=== PATIENT | female | born 1985 | race Caucasian/White ===

== ENCOUNTER 2016-08-05 08:40 | Inpatient (IN) | payer BC ==
[2016-08-05] MEDS ORDERED: Bupivacaine/fentaNYL/NS 100 ML Bag EPIDUR SCH (09:45)
[2016-08-05] MEDS ORDERED: Ondansetron 4 MG/2 ML SDV IVPUSH PRN (10:24)
[2016-08-05] MEDS ORDERED: Sodium Chloride 0.9% 10 ML Syringe FLUSH PRN (10:24)
[2016-08-05] MEDS ORDERED: ePHEDrine 50 MG/ML SDV IVPUSH PRN (10:25)
[2016-08-05] MEDS ORDERED: fentaNYL 100 MCG/2 ML SDV EPIDUR PRN (10:25)
[2016-08-05] MEDS ORDERED: Oxytocin/Lactated Ringers 10 UNIT/1,000 ML BAG IV SCH ×2 (10:30→23:51)
[2016-08-05] MEDS: Lactated Ringers 1,000 ML IV SCH ×5 (10:54→16:59)
--- NOTE | 2016-08-05 10:58 | PCM.PREANE ---
Preanesthetic Assessment - Anesthesia/Transfusion/Family Hx Anesthesia History: Prior Anesthesia Without Reaction Family History of Anesthesia Reaction: No Transfusion History: No Prior Transfusion(s) Intubation History: Unknown - Review of Systems General: No Symptoms Pulmonary: No Symptoms Cardiovascular: No Symptoms Gastrointestinal: No symptoms (GERD), Vomiting (occasionally with ) Neurological: No Symptoms (CTS with ) Other: Reports: None (history of blood clots with control pill/ patient taking heparin and last dose 08/04/16 @1800), Easy Bleeding, Easy Bruising - Physical Assessment NPO Status Date: 08/05/16 NPO Status Time: 03:00 Pulse: 91 O2 Sat by Pulse Oximetry: 97 Respiratory Rate: 18 Blood Pressure: 140/99 Temperature: 36.7 C Vital Signs: Last Vital Signs Temp 36.7 C 08/05/16 09:53 Pulse 91 08/05/16 09:53 Resp 18 08/05/16 09:53 BP 140/99 H 08/05/16 09:53 Pulse Ox 97 08/05/16 09:53 Height: 1.68 m Weight: 93.894 kg ASA Class: 2 Mental Status: Alert & Oriented x3 Airway Class: Mallampati = 3 Dentition: Reports: Normal Dentition, Caries Thyro-Mental Finger Breadths: 3 Mouth Opening Finger Breadths: 3 ROM/Head Extension: Full Lungs: Clear to auscultation, Normal respiratory effort Cardiovascular: Regular Rate, Regular Rhythm - Lab Values: Laboratory Last Values WBC 9.33 K/mm3 (3.98-10.04) 08/05/16 10:10 RBC 3.86 M/mm3 (3.98-5.22) L 08/05/16 10:10 Hgb 12.1 gm/L (11.2-15.7) 08/05/16 10:10 Hct 35.0 % (34.1-44.9) 08/05/16 10:10 MCV 90.7 fl (79.4-94.8) 08/05/16 10:10 MCH 31.3 pg (25.6-32.2) 08/05/16 10:10 MCHC 34.6 g/dl (32.2-35.5) 08/05/16 10:10 RDW Std Deviation 43.0 fL (36.4-46.3) 08/05/16 10:10 Plt Count 137 K/mm3 (182-369) L 08/05/16 10:10 MPV 11.5 fl (9.4-12.3) 08/05/16 10:10 PT 8.9 SECONDS (8.0-13.0) 08/05/16 10:10 INR 0.83 08/05/16 10:10 APTT 27 SECONDS (22-36) 08/05/16 10:10 Reviewed and noted. - Allergies Allergies/Adverse Reactions: Allergies Allergy/AdvReac Type Severity Reaction Status Date / Time phenytoin [From Dilantin] Allergy Other Verified 08/05/16 10:10 - Anesthesia Plan Pre-Op Medication Ordered: None - Acknowledgements Anesthesia Type Planned: Epidural Pt an Appropriate Candidate for the Planned Anesthesia: Yes Alternatives and Risks of Anesthesia Discussed w Pt/Guardian: Yes Pt/Guardian Understands and Agrees with Anesthesia Plan: Yes PreAnesthesia Questionnaire - Past Health History Medical/Surgical History: Denies Medical/Surgical History HEENT History: Reports: None Other Neuro History: DVT CAUSED SEIZURE Endocrine/Metabolic History: Reports: None Hematologic History: Reports: Other (see below) Other Hematologic History: BLOOD CLOT AT AGE 27 - Past Surgical History HEENT Surgical History: Reports: Oral surgery Other Endocrine Surgeries/Procedures: history of dvt Other Neurological Surgeries/Procedures: SEISURE FROM DVT - SUBSTANCE USE Smoking Status *Q: Former Smoker Second Hand Smoke Exposure: No Recreational Drug Use History: No - CURRENT (IN HOUSE) MEDS Current Meds: Current Medications Ephedrine Sulfate (Ephedrine Sulfate) 5 mg IVPUSH ASDIRECTED PRN PRN Reason: Hypotension Fentanyl (Sublimaze) 100 mcg EPIDUR Q3H PRN PRN Reason: Pain Fentanyl/Bupivacaine HCl (Fentanyl/Bupivacaine/Ns 2 Mcg-0.125% 100 Ml) 100 ml EPIDUR ASDIRECTED [facility] Ampicillin Sodium 2 gm/ Sodium (Chloride) 100 mls @ 200 mls/hr IV ONETIME ONE Stop: 08/05/16 11:29 Last Admin: 08/05/16 10:52 Dose: 200 mls/hr Ampicillin Sodium 1 gm/ Sodium (Chloride) 100 mls @ 200 mls/hr IV Q4H MARIA G Lactated Ringer's (Ringers, Lactated) 1,000 mls @ 100 mls/hr IV ASDIRECTED MARIA G Oxytocin/Lactated Ringer's (Pitocin In Lr 10 Units/1,000 Ml) 10 unit in 1,000 mls @ 12 mls/hr IV TITRATE MARIA G; 2 MUNITS/MIN PRN Reason: Protocol Ondansetron HCl (Zofran) 4 mg IVPUSH ONETIME PRN PRN Reason: Nausea/Vomiting Sodium Chloride (Saline Flush) 10 ml FLUSH ASDIRECTED PRN PRN Reason: Keep Vein Open
[2016-08-05] MEDS ORDERED: Ampicillin 2 GM in Sodium Chloride 0.9% 100 ML IV ONE (11:00)
--- NOTE | 2016-08-05 14:28 | PCM.SN ---
- Free Text/Narrative Note: Start: 1350 Stop: Anesthesia Note: Anesthesia notified of patient having pressures in the 60's/40's. Upon arrival patient awake, and conversing and answering questions appropriately. Patient c/o hearing ringing in her ears, and tingling in her tongue, Patient's color is pale/pasty. Iv fluids running wide open/CLIFF stopped/10mg of ephedrine given IV and pressures responded well at 110's-130's/ 60's. Patient repositioned back to RIGO position. Level checked to be T6. Patient able to move legs well, and able to wiggle toes. CLIFF restarted and pressures again dropped 80's systolic. CLIFF stopped once again @ 1353 with another ephedrine dose of 10mg given. Once again pressures responded well to 120's systolic. CLIFF rate dropped to 7ml's/hr and kept off temporarily. Under sterile technique, CLIFF catheter pulled back from 10cm to 9cm. Catheter secured and dressing applied and secured with tape. At 1433 CLIFF restarted at rate of 7ml's/hr, current LY=119's systolic. Nurse present at bedside, and patient/ encouraged to communicate any signs and or symptoms.
[2016-08-05] MEDS: Ampicillin 1 GM in Sodium Chloride 0.9% 100 ML IV SCH ×3 (15:20→23:10)
--- NOTE | 2016-08-05 15:44 | PCM48HPAN ---
Post Anesthesia Note - EVALUATION WITHIN 48HRS OF ANESTHETIC Vital Signs in Normal Range: Yes Patient Participated in Evaluation: Yes Respiratory Function Stable: Yes Airway Patent: Yes Cardiovascular Function Stable: Yes Hydration Status Stable: Yes Pain Control Satisfactory: Yes Nausea and Vomiting Control Satisfactory: Yes Mental Status Recovered: Yes - COMMENTS/OBSERVATIONS Free Text/Narrative:: 1525: Patient checked with adequate pain control noted, vital signs remaining within acceptable limits, and both patient and resting quietly. No c/o noted at this time.
[2016-08-05] MEDS ORDERED: Bupivacaine 0.25% 10 ML SDV ONE (22:22)
[2016-08-05] MEDS ORDERED: ePHEDrine 50 MG/ML SDV ONE (22:22)
[2016-08-06] MEDS ORDERED: Lanolin 100% Cream 7 GM Tube TOP PRN (00:47)
[2016-08-06] MEDS ORDERED: Acetaminophen 325 MG Tab PO PRN (00:47)
[2016-08-06] MEDS ORDERED: Benzocaine/Menthol 20%-0.5% Spray 56 GM Canister TOP PRN (00:47)
[2016-08-06] MEDS ORDERED: Witch Hazel Medicated Pads 100/Jar TOP PRN (00:47)
[2016-08-06] MEDS: Lactated Ringers 1,000 ML IV SCH (01:32)
--- NOTE | 2016-08-06 09:17 | PCM.PNPP ---
- General Info Date of Service: 08/06/16 Functional Status: Reports: pain controlled - Review of Systems General: Reports: No Symptoms HEENT: Reports: no symptoms Pulmonary: Reports: no symptoms Cardiovascular: Reports: No Symptoms Gastrointestinal: Reports: No symptoms Genitourinary: Reports: no symptoms Musculoskeletal: Reports: no symptoms Skin: Reports: no symptoms Neurological: Reports: No Symptoms Psychiatric: Reports: no symptoms - General Info Date of Service: 08/06/16 - Patient Data Vital Signs - most recent: Last Vital Signs Temp 36.8 C 08/06/16 02:23 Pulse 116 H 08/06/16 02:23 Resp 18 08/06/16 02:23 BP 101/84 08/06/16 02:23 Pulse Ox 96 08/06/16 02:23 Weight - most recent: 93.894 kg I&O - last 24 hours: Intake & Output 08/05/16 08/06/16 08/06/16 22:59 06:59 14:59 Intake Total 720 1000 Balance 720 1000 Lab Results - last 24 hrs: Laboratory Results - last 24 hr 08/05/16 08/05/16 Range/Units 10:10 10:10 WBC 9.33 (3.98-10.04) K/mm3 RBC 3.86 L (3.98-5.22) M/mm3 Hgb 12.1 (11.2-15.7) gm/L Hct 35.0 (34.1-44.9) % MCV 90.7 (79.4-94.8) fl MCH 31.3 (25.6-32.2) pg MCHC 34.6 (32.2-35.5) g/dl RDW Std Deviation 43.0 (36.4-46.3) fL Plt Count 137 L (182-369) K/mm3 MPV 11.5 (9.4-12.3) fl PT 8.9 (8.0-13.0) SECONDS INR 0.83 APTT 27 (22-36) SECONDS Med Orders - Current: Current Medications Acetaminophen (Tylenol) 650 mg PO Q6H PRN PRN Reason: mild pain or fever Benzocaine/Menthol (Dermoplast Pain Relief [place]) 0 gm TOP ASDIRECTED PRN PRN Reason: Perineal Comfort Measure Last Admin: 08/06/16 01:31 Dose: 1 applic Docusate Sodium (Colace) 100 mg PO BID PRN PRN Reason: Constipation Emollient Ointment (Lansinoh Hpa) 0 gm TOP ASDIRECTED PRN PRN Reason: Sore Nipples Enoxaparin Sodium (Lovenox) 40 mg SUBCUT DAILY [facility] Oxytocin/Lactated Ringer's (Pitocin In Lr 10 Units/1,000 Ml) 10 unit in 1,000 mls @ 3,000 mls/hr IV ASDIRECTED MARIA G PRN Reason: 500 MUNITS/MIN Last Admin: 08/06/16 01:34 Dose: 83 munits/min, 498 mls/hr Harris Joiner (Tucks) 1 pad TOP ASDIRECTED PRN PRN Reason: Hemorrhoid pain Last Admin: 08/06/16 01:30 Dose: 1 applic Discontinued Medications Ephedrine Sulfate (Ephedrine Sulfate) 5 mg IVPUSH ASDIRECTED PRN PRN Reason: Hypotension Fentanyl (Sublimaze) 100 mcg EPIDUR Q3H PRN PRN Reason: Pain Last Admin: 08/05/16 13:06 Dose: 100 mcg Fentanyl/Bupivacaine HCl (Fentanyl/Bupivacaine/Ns 2 Mcg-0.125% 100 Ml) 100 ml EPIDUR ASDIRECTED MARIA G Last Admin: 08/05/16 13:06 Dose: 100 ml Ampicillin Sodium 2 gm/ Sodium (Chloride) 100 mls @ 200 mls/hr IV ONETIME ONE Stop: 08/05/16 11:29 Last Admin: 08/05/16 10:52 Dose: 200 mls/hr Ampicillin Sodium 1 gm/ Sodium (Chloride) 100 mls @ 200 mls/hr IV Q4H [facility] Last Admin: 08/05/16 23:10 Dose: 200 mls/hr Lactated Ringer's (Ringers, Lactated) 1,000 mls @ 100 mls/hr IV ASDIRECTED MARIA G Last Admin: 08/06/16 01:32 Dose: 200 mls/hr Oxytocin/Lactated Ringer's (Pitocin In Lr 10 Units/1,000 Ml) 10 unit in 1,000 mls @ 12 mls/hr IV TITRATE MARIA G; 2 MUNITS/MIN PRN Reason: Protocol Last Titration: 08/05/16 21:25 Dose: 16 munits/min, 96 mls/hr Ondansetron HCl (Zofran) 4 mg IVPUSH ONETIME PRN PRN Reason: Nausea/Vomiting Sodium Chloride (Saline Flush) 10 ml FLUSH ASDIRECTED PRN PRN Reason: Keep Vein Open - Infant Interaction Disposition, : Rumsey at Bedside Support Person: - Recovery Exam Fundal Tone: Firm Fundal Level: 1 Fingerbreadths Below Umbilicus Fundal Placement: Midline Lochia Amount: Small Bladder Status: Voiding - Exam General: alert, oriented HEENT: Pupils equal Neck: supple Lungs: Clear to auscultation, Normal respiratory effort Cardiovascular: Regular Rate, Regular Rhythm Abdomen: bowel sounds present, soft, no tenderness, no distension Extremities: no edema Skin: warm, dry, intact Neurological: no new focal deficit Psy/Mental Status: alert, normal affect, normal mood - Problem List Review Problem List Initiated/Reviewed/Updated: Yes - My Orders Last 24 Hours: My Active Orders 08/05/16 09:53 Heart Tones [RC] ASDIRECTED 08/05/16 23:51 Oxytocin/Lactated Ringers [Pitocin in LR 10 Units/1,000 ML] 10 unit in 1,000 ml IV ASDIRECTED 08/06/16 00:38 Resuscitation Status Routine 08/06/16 00:47 Activity as Tolerated [RC] .PRN Vital Signs [RC] ASDIRECTED Acetaminophen [Tylenol] 650 mg PO Q6H PRN Benzocaine/Menthol [Dermoplast Pain Relief [place]] See Dose Instructions TOP ASDIRECTED PRN Docusate Sodium [Colace] 100 mg PO BID PRN Lanolin [Lansinoh HPA] See Dose Instructions TOP ASDIRECTED PRN Witch Marisel [Tucks] 1 pad TOP ASDIRECTED PRN Assess Lochia [WOMSER] Per Unit Routine Assess Uterine Involution [WOMSER] Per Unit Routine Breast Pump [WOMSER] Per Unit Routine Heat Therapy [OM.PC] PRN Medication Administration Instruction [OM.PC] Routine Perineal Care [OM.PC] Per Unit Routine Sitz Bath [OM.PC] Per Unit Routine 08/06/16 14:00 Enoxaparin [Lovenox] 40 mg SUBCUT DAILY 08/06/16 Breakfast Regular Diet [DIET] 08/07/16 00:39 CBC W/O DIFF,HEMOGRAM [HEME] Routine 08/07/16 00:47 Heat Therapy [OM.PC] PRN 08/07/16 07:00 CBC W/O DIFF,HEMOGRAM [HEME] MOTH@69908/11/16 07:00 CBC W/O DIFF,HEMOGRAM [HEME] MOTH@69908/14/16 07:00 CBC W/O DIFF,HEMOGRAM [HEME] MOTH@69908/18/16 07:00 CBC W/O DIFF,HEMOGRAM [HEME] MOTH@69908/21/16 07:00 CBC W/O DIFF,HEMOGRAM [HEME] MOTH@69908/25/16 07:00 CBC W/O DIFF,HEMOGRAM [HEME] MOTH@0700 - Assessment Assessment:: Term delivery -History of sagital sinus thrombosis - restart lovenox at 1400 -Normal care otherwise at this time.
[2016-08-06] MEDS: Docusate Sodium 100 MG Cap PO PRN (10:00)
[2016-08-06] MEDS: Enoxaparin 40 MG/0.4 ML Syringe SUBCUT SCH (13:58)
[2016-08-06] MEDS: Acetaminophen 325 MG Tab PO PRN ×2 (15:33→20:50)
--- NOTE | 2016-08-07 08:01 | PCM.DCSUM1 ---
Discharge Summary - Hospital Course Brief History: Admitted with rupture of membranes. Progressed with normal labor. - Discharge Data Discharge Date: 08/07/16 Discharge Disposition: Home, Self-Care 01 Condition: Good - Patient Instructions Diet: Usual Diet as Tolerated Activity: No Strenuous Activities Driving: May Drive Today Showering/Bathing: May Shower Notify Provider of: Fever, Increased Pain, Swelling and Redness, Drainage, Nausea and/or Vomiting - Discharge Plan Referrals: Nimisha Rinaldi MD [Physician] - (6 weeks) - Discharge Summary/Plan Comment DC Time >30 min.: No - Patient Data Vitals - Most Recent: Last Vital Signs Temp 36.6 C 08/06/16 13:05 Pulse 74 08/06/16 13:05 Resp 15 08/06/16 13:05 BP 102/79 08/06/16 13:05 Pulse Ox 96 08/06/16 13:05 Weight - Most Recent: 93.894 kg I&O - Last 24 hours: Intake & Output 08/06/16 08/07/16 08/07/16 22:59 06:59 14:59 Intake Total 120 Balance 120 Lab Results - Last 24 hrs: Laboratory Results - last 24 hr 08/07/16 Range/Units 06:10 WBC 13.71 H (3.98-10.04) K/mm3 RBC 3.23 L (3.98-5.22) M/mm3 Hgb 10.1 L (11.2-15.7) gm/L Hct 29.9 L (34.1-44.9) % MCV 92.6 (79.4-94.8) fl MCH 31.3 (25.6-32.2) pg MCHC 33.8 (32.2-35.5) g/dl RDW Std Deviation 43.9 (36.4-46.3) fL Plt Count 132 L (182-369) K/mm3 MPV 12.1 (9.4-12.3) fl Med Orders - Current: Current Medications Acetaminophen (Tylenol) 650 mg PO Q4H PRN PRN Reason: Pain Last Admin: 08/06/16 20:50 Dose: 650 mg Benzocaine/Menthol (Dermoplast Pain Relief [place]) 0 gm TOP ASDIRECTED PRN PRN Reason: Perineal Comfort Measure Last Admin: 08/06/16 01:31 Dose: 1 applic Docusate Sodium (Colace) 100 mg PO BID PRN PRN Reason: Constipation Last Admin: 08/06/16 10:00 Dose: 100 mg Emollient Ointment (Lansinoh Hpa) 0 gm TOP ASDIRECTED PRN PRN Reason: Sore Nipples Last Admin: 08/06/16 14:30 Dose: 1 tube Enoxaparin Sodium (Lovenox) 40 mg SUBCUT DAILY [facility] Last Admin: 08/06/16 13:58 Dose: 40 mg Oxytocin/Lactated Ringer's (Pitocin In Lr 10 Units/1,000 Ml) 10 unit in 1,000 mls @ 3,000 mls/hr IV ASDIRECTED MARIA G PRN Reason: 500 MUNITS/MIN Last Admin: 08/06/16 01:34 Dose: 83 munits/min, 498 mls/hr Witch Marisel (Tucks) 1 pad TOP ASDIRECTED PRN PRN Reason: Hemorrhoid pain Last Admin: 08/06/16 01:30 Dose: 1 applic Discontinued Medications Acetaminophen (Tylenol) 650 mg PO Q6H PRN PRN Reason: mild pain or fever Last Admin: 08/06/16 10:15 Dose: 650 mg Bupivacaine HCl (Sensorcaine-Mpf 0.25%) 10 ml .ROUTE .STK-MED ONE Stop: 08/05/16 22:23 Ephedrine Sulfate (Ephedrine Sulfate) 5 mg IVPUSH ASDIRECTED PRN PRN Reason: Hypotension Ephedrine Sulfate (Ephedrine Sulfate) 50 mg .ROUTE .STK-MED ONE Stop: 08/05/16 22:23 Fentanyl (Sublimaze) 100 mcg EPIDUR Q3H PRN PRN Reason: Pain Last Admin: 08/05/16 13:06 Dose: 100 mcg Fentanyl/Bupivacaine HCl (Fentanyl/Bupivacaine/Ns 2 Mcg-0.125% 100 Ml) 100 ml EPIDUR ASDIRECTED [facility] Last Admin: 08/05/16 13:06 Dose: 100 ml Ampicillin Sodium 2 gm/ Sodium (Chloride) 100 mls @ 200 mls/hr IV ONETIME ONE Stop: 08/05/16 11:29 Last Admin: 08/05/16 10:52 Dose: 200 mls/hr Ampicillin Sodium 1 gm/ Sodium (Chloride) 100 mls @ 200 mls/hr IV Q4H MARIA G Last Admin: 08/05/16 23:10 Dose: 200 mls/hr Lactated Ringer's (Ringers, Lactated) 1,000 mls @ 100 mls/hr IV ASDIRECTED MARIA G Last Admin: 08/06/16 01:32 Dose: 200 mls/hr Oxytocin/Lactated Ringer's (Pitocin In Lr 10 Units/1,000 Ml) 10 unit in 1,000 mls @ 12 mls/hr IV TITRATE MARIA G; 2 MUNITS/MIN PRN Reason: Protocol Last Titration: 08/05/16 21:25 Dose: 16 munits/min, 96 mls/hr Ondansetron HCl (Zofran) 4 mg IVPUSH ONETIME PRN PRN Reason: Nausea/Vomiting Sodium Chloride (Saline Flush) 10 ml FLUSH ASDIRECTED PRN PRN Reason: Keep Vein Open *Q Meaningful Use (DIS) - VTE *Q VTE Criteria *Q: - Stroke *Q Stroke Criteria *Q: - AMI *Q AMI Criteria *Q:
[2016-08-07] MEDS: Docusate Sodium 100 MG Cap PO PRN (08:06)
[2016-08-07] MEDS: Acetaminophen 325 MG Tab PO PRN (08:06)
[2016-08-07 09:58] VITALS: BP 118/86
[2016-08-07] MEDS: Enoxaparin 40 MG/0.4 ML Syringe SUBCUT SCH (10:09)
--- NOTE | 2016-08-08 00:37 | PCM.LDHP ---
L&D History of Present Illness - General Date of Service: 08/08/16 Admit Problem/Dx: Admission Diagnosis/Problem Admission Diagnosis/Problem Source of Information: Patient History Limitations: Reports: No Limitations - History of Present Illness Introduction:: 31 year old here with painful contractions and question of rupture of membranes. Pain Score: 1 - Related Data Allergies/Adverse Reactions: Allergies Allergy/AdvReac Type Severity Reaction Status Date / Time phenytoin [From Dilantin] Allergy Other Verified 08/05/16 10:10 Home Medications: Home Meds Acetaminophen [Tylenol] 650 mg PO Q4H PRN #0 tablet 08/07/16 [Rx] Benzocaine/Menthol [Dermoplast Pain Relief [place]] 56 gm TOP ASDIRECTED PRN #0 canister 08/07/16 [Rx] Docusate Sodium [Colace] 100 mg PO BID PRN #0 cap 08/07/16 [Rx] Enoxaparin [Lovenox] 40 mg SUBCUT DAILY syringe 08/07/16 [Rx] Harris Marisel [Tucks] 1 pad TOP ASDIRECTED PRN #0 pad 08/07/16 [Rx] Past Medical History - Past Health History Medical/Surgical History: Denies Medical/Surgical History HEENT History: Reports: None Other Neuro History: DVT CAUSED SEIZURE Endocrine/Metabolic History: Reports: None Hematologic History: Reports: Other (see below) Other Hematologic History: BLOOD CLOT AT AGE 27 - Past Surgical History HEENT Surgical History: Reports: Oral surgery Other Endocrine Surgeries/Procedures: history of dvt Other Neurological Surgeries/Procedures: SEISURE FROM DVT Social & Family History - Family History Family Medical History: Noncontributory - Tobacco Use Smoking Status *Q: Former Smoker Used Tobacco, but Quit: No Month Tobacco Last Used: 2009 Second Hand Smoke Exposure: No - Caffeine Use Caffeine Use: Reports: Soda - Recreational Drug Use Recreational Drug Use: No H&P Review of Systems - Review of Systems: Review Of Systems: See Below General: Reports: No Symptoms HEENT: Reports: No Symptoms Pulmonary: Reports: No Symptoms Cardiovascular: Reports: No Symptoms Gastrointestinal: Reports: No Symptoms Genitourinary: Reports: No Symptoms Musculoskeletal: Reports: No Symptoms Skin: Reports: No Symptoms Psychiatric: Reports: No Symptoms Neurological: Reports: No Symptoms Hematologic/Lymphatic: Reports: No Symptoms Immunologic: Reports: No Symptoms L&D Exam - Exam Exam: See Below - Vital Signs Vital Signs: Last Vital Signs Temp 36.7 C 08/07/16 08:07 Pulse 80 08/07/16 08:07 Resp 16 08/07/16 08:07 BP 118/86 08/07/16 08:07 Pulse Ox 98 08/07/16 08:07 Weight: 93.894 kg - OB Specific Contraction Intensity: Moderate Movement: Active Heart Tones: Present Heart Tones per Min: 145 Heart Rate (FHR) Variability: Moderate (6-25 bmp) Presentation: Vertex - Antonio Score Antonio Score Cervix Position: Midposition Antonio Score Consistency: Soft Antonio Score Effacement: 51-70% Antonio Score Dilation: 3-4 cm Antonio Score Infant's Station: -1 ,0 Antonio Score Total: 9 - Exam General: Alert, Oriented HEENT: Conjunctiva Clear Neck: Supple Lungs: Clear to Auscultation Cardiovascular: Regular Rate, Regular Rhythm Abdomen: Normal Bowel Sounds, Soft Genitourinary: Normal external exam Back Exam: Normal Inspection, Full Range of Motion Extremities: Normal Inspection Skin: Warm, Dry, Intact Psychiatric: Alert, Normal Affect, Normal Mood - Patient Data Lab Results last 24 hrs: Laboratory Results - last 24 hr 08/07/16 Range/Units 06:10 WBC 13.71 H (3.98-10.04) K/mm3 RBC 3.23 L (3.98-5.22) M/mm3 Hgb 10.1 L (11.2-15.7) gm/L Hct 29.9 L (34.1-44.9) % MCV 92.6 (79.4-94.8) fl MCH 31.3 (25.6-32.2) pg MCHC 33.8 (32.2-35.5) g/dl RDW Std Deviation 43.9 (36.4-46.3) fL Plt Count 132 L (182-369) K/mm3 MPV 12.1 (9.4-12.3) fl Result Diagrams: 08/07/16 06:10 Problem List Initiated/Reviewed/Updated: Yes Orders Last 24hrs: Active Orders 24 hr Category Date Time Status Ready for Discharge [RC] PER UNIT ROUTINE Care 08/07/16 07:57 Active Heat Therapy [OM.PC] PRN Oth 08/07/16 00:47 Ordered Assessment/Plan Comment:: Term labor. History of sagital sinus thrombosis. Stopped heparin with contractions.
== END 2016-08-07 11:00 | disposition home or self-care (01) | DRG 560 ==
LOC: JD.OBCHECK 08:40 → JD.OB 08:41 → OBSVTOIN 23:57
PROVIDERS: ADMIT Obstetrics & Gynecology; ATTEND Obstetrics & Gynecology
PROC: 10E0XZZ Delivery of Products of Conception, External Approach (ICD-10-PCS; principal; 2016-08-05)
PROC: 0KQM0ZZ Repair Perineum Muscle, Open Approach (ICD-10-PCS; 2016-08-05)
PROC: 00HU33Z Insertion of Infusion Device into Spinal Canal, Percutaneous Approach (ICD-10-PCS; 2016-08-05)
PROC: 3E0R3CZ (ICD-10-PCS; 2016-08-05)
DX: O42.92 Full-term premature rupture of membranes, unspecified as to length of time between rupture and onset of labor (principal); O99.824 Streptococcus B carrier state complicating childbirth; O70.1 Second degree perineal laceration during delivery; Z3A.40 40 weeks gestation of pregnancy; Z37.0 Single live birth; Z86.718 Personal history of other venous thrombosis and embolism; Z79.01 Long term (current) use of anticoagulants; Z88.8 Allergy status to other drugs, medicaments and biological substances; Z87.891 Personal history of nicotine dependence
CPT/HCPCS: 01967; 36415; 85027; 85610; 85730; A9270-GY; J0290; J1650; J2590; J3010; J7030; J7120

== ENCOUNTER 2019-11-24 14:17 | Inpatient (IN) | payer BC ==
[2019-11-24] MEDS ORDERED: Sodium Chloride 0.9% 10 ML Syringe FLUSH PRN (15:12)
[2019-11-24] MEDS ORDERED: Lidocaine 1% 50 ML MDV INJECT PRN (15:12)
[2019-11-24] MEDS ORDERED: Nalbuphine 10 MG/ML Syringe IVPUSH PRN (15:12)
[2019-11-24] MEDS ORDERED: Oxytocin/Lactated Ringers 10 UNIT/1,000 ML BAG IV SCH ×2 (15:15)
--- NOTE | 2019-11-24 15:35 | PCM.LDHP ---
L&D History of Present Illness - General Date of Service: 11/24/19 Admit Problem/Dx: Patient Status Order with Admit Dx/Problem 11/24/19 15:12 Patient Status [ADT] Routine Admission Diagnosis/Problem Admission Diagnosis/Problem - History of Present Illness Introduction:: 34 year old at 37w6 here with mild gestational hypertension for IOL Timing/Duration: Reports: seconds: - Related Data Allergies/Adverse Reactions: Allergies Allergy/AdvReac Type Severity Reaction Status Date / Time phenytoin [From Dilantin] Allergy Other Verified 08/05/16 10:10 Home Medications: Home Meds Acetaminophen [Tylenol] 650 mg PO Q4H PRN #0 tablet 08/07/16 [Rx] Aspirin [Jimena Chewable] 81 mg PO BEDTIME 11/24/19 [History] Cetirizine HCl [Zyrtec] 1 tab PO BEDTIME 11/24/19 [History] Escitalopram Oxalate [Lexapro] 10 mg PO BEDTIME 11/24/19 [History] Heparin Sodium,Porcine/PF [Heparin Sod 5,000 Unit/0.5 ml] 10,000 unit SQ DAILY 11/24/19 [History] Pnv No.95/Ferrous Fum/Folic AC [ Vitamin Tablet] 1 tab PO BEDTIME 11/24/19 [History] Past Medical History - Past Health History Medical/Surgical History: Denies Medical/Surgical History HEENT History: Reports: None Other Neuro History: DVT CAUSED SEIZURE Endocrine/Metabolic History: Reports: None Hematologic History: Reports: Other (See Below) Other Hematologic History: BLOOD CLOT AT AGE 27 - Past Surgical History HEENT Surgical History: Reports: Oral Surgery Social & Family History - Family History Family Medical History: Noncontributory - Caffeine Use Caffeine Use: Reports: Soda H&P Review of Systems - Review of Systems: Review Of Systems: See Below General: Reports: No Symptoms HEENT: Reports: No Symptoms Pulmonary: Reports: No Symptoms Cardiovascular: Reports: No Symptoms Gastrointestinal: Reports: No Symptoms Genitourinary: Reports: No Symptoms Musculoskeletal: Reports: No Symptoms Skin: Reports: No Symptoms Psychiatric: Reports: No Symptoms Neurological: Reports: No Symptoms Hematologic/Lymphatic: Reports: No Symptoms Immunologic: Reports: No Symptoms L&D Exam - Exam Exam: See Below - Vital Signs Vital Signs: Last Vital Signs Temp Pulse 97 11/24/19 15:00 Resp BP 138/95 H 11/24/19 15:00 Pulse Ox Weight: 101.605 kg - OB Specific Contraction Intensity: Irritability Movement: Active Heart Tones: Present Heart Rate (FHR) Variability: Moderate (6-25 bmp) - Antonio Score Antonio Score Cervix Position: Midposition Antonio Score Consistency: Soft Antonio Score Effacement: >80% Antonio Score Dilation: 1-2 cm Antonio Score Infant's Station: -2 Antonio Score Total: 8 - Exam General: Alert, Oriented HEENT: PERRLA, Conjunctiva Clear, EACs Clear, EOMI, Hearing Intact, Mucosa Moist & Arnold, Nares Patent, Normal Nasal Septum, Posterior Pharynx Clear, TMs Clear Neck: Supple, Trachea Midline Lungs: Clear to Auscultation, Normal Respiratory Effort Cardiovascular: Regular Rate, Regular Rhythm GI/Abdominal Exam: Normal Bowel Sounds, Soft, Non-Tender, No Organomegaly, No Distention, No Abnormal Bruit, No Mass, Pelvis Stable Rectal Exam: Normal Exam Back Exam: Normal Inspection, Full Range of Motion Extremities: Normal Inspection, Normal Range of Motion, Non-Tender, No Pedal Edema, Normal Capillary Refill Skin: Warm, Dry, Intact Neurological: Cranial Nerves Intact, Reflexes Equal Bilateral Psychiatric: Alert, Normal Affect, Normal Mood Problem List Initiated/Reviewed/Updated: Yes Orders Last 24hrs: Active Orders 24 hr Category Date Time Status Patient Status [ADT] Routine ADT 11/24/19 15:12 Active Activity as Tolerated [RC] PFP Care 11/24/19 15:12 Active Communication Order [RC] ASDIRECTED Care 11/24/19 15:12 Active Heart Tones [RC] ASDIRECTED Care 11/24/19 15:13 Active Non Stress Test [RC] PER UNIT ROUTINE Care 11/24/19 15:12 Active Notify Provider [RC] PFP Care 11/24/19 15:12 Active Notify Provider [RC] PRN Care 11/24/19 15:12 Active Peripheral IV Care [RC] . DIRECTED Care 11/24/19 15:13 Active Urinary Catheter Assessment [RC] ASDIRECTED Care 11/24/19 15:12 Active Vital Signs [RC] PER UNIT ROUTINE Care 11/24/19 15:12 Active Regular Diet [DIET] Diet 11/24/19 Dinner Active ALANINE AMINOTRANSFERASE,ALT [CHEM] Stat Lab 11/24/19 15:32 Ordered ASPARTATE AMNIOTRANSFERASE,AST [CHEM] Stat Lab 11/24/19 15:32 Ordered BLOOD BANK HOLD SPECIMEN [BBK] Routine Lab 11/24/19 15:12 Ordered BLOOD UREA NITROGEN,BUN [CHEM] Stat Lab 11/24/19 15:32 Ordered CBC W/O DIFF,HEMOGRAM [HEME] Routine Lab 11/24/19 15:12 Ordered CBC WITH AUTO DIFF [HEME] Stat Lab 11/24/19 15:32 Ordered CORONAVIRUS COVID-19 RAPID [MOLEC] Routine Lab 11/24/19 15:15 Ordered CREATININE W/GFR [CHEM] Stat Lab 11/24/19 15:32 Ordered LACTATE DEHYDROGENASE,LDH [CHEM] Stat Lab 11/24/19 15:32 Ordered PROTEIN/CREATININE RATIO,URINE [URCHEM] Routine Lab 11/24/19 15:32 Ordered RAPID PLASMA REAGIN,RPR [CHEM] Routine Lab 11/24/19 15:12 Ordered Lactated Ringers [Ringers, Lactated] 1,000 ml Med 11/24/19 15:15 Active IV ASDIRECTED Lidocaine 1% [Xylocaine 1%] Med 11/24/19 15:12 Active 50 ml INJECT ONETIME PRN Nalbuphine [Nubain] Med 11/24/19 15:12 Active 10 mg IVPUSH Q2H PRN Oxytocin/Lactated Ringers [Pitocin in LR 10 Units/1,000 Med 11/24/19 15:15 Active ML] 10 unit in 1,000 ml IV .CONTINUOUS Oxytocin/Lactated Ringers [Pitocin in LR 10 Units/1,000 Med 11/24/19 15:15 Active ML] 10 unit in 1,000 ml IV TITRATE Sodium Chloride 0.9% [Saline Flush] Med 11/24/19 15:12 Active 10 ml FLUSH ASDIRECTED PRN Electronic Heart Tones Ext w TOCO [WOMSER] Oth 11/24/19 15:12 Ordered Routine Electronic Heart Tones Internal [WOMSER] Per Unit Oth 11/24/19 15:12 Ordered Routine PIH Panel [OM.PC] Urgent Oth 11/24/19 15:32 Ordered Peripheral IV Insertion Adult [OM.PC] Routine Oth 11/24/19 15:12 Ordered Resuscitation Status Routine Resus Stat 11/24/19 15:12 Ordered Medication Orders Oxytocin/Lactated Ringer's (Pitocin In Lr 10 Units/1,000 Ml) 10 unit in 1,000 mls @ 12 mls/hr IV TITRATE MARIA G; Protocol Oxytocin/Lactated Ringer's (Pitocin In Lr 10 Units/1,000 Ml) 10 unit in 1,000 mls @ 500 mls/hr IV .CONTINUOUS MARIA G Lactated Ringer's (Ringers, Lactated) 1,000 mls @ 100 mls/hr IV ASDIRECTED MARIA G Lidocaine HCl (Xylocaine 1%) 50 ml INJECT ONETIME PRN PRN Reason: Breakthrough Pain Nalbuphine HCl (Nubain) 10 mg IVPUSH Q2H PRN PRN Reason: Pain Sodium Chloride (Saline Flush) 10 ml FLUSH ASDIRECTED PRN PRN Reason: Keep Vein Open Assessment/Plan Comment:: 34 year old here for gestational htn
[2019-11-24] MEDS: Lactated Ringers 1,000 ML IV SCH ×2 (15:43→19:33)
[2019-11-24] MEDS ORDERED: diphenhydrAMINE 50 MG/ML SDV IVPUSH PRN (19:10)
[2019-11-24] MEDS ORDERED: ePHEDrine 50 MG/ML SDV IVPUSH PRN (19:10)
[2019-11-24] MEDS ORDERED: Bupivacaine/fentaNYL/NS 100 ML Bag EPIDUR PRN (19:10)
[2019-11-24] MEDS ORDERED: fentaNYL 100 MCG/2 ML SDV EPIDUR PRN (19:10)
--- NOTE | 2019-11-24 19:33 | PCM.PREANE ---
Preanesthetic Assessment - Procedure Proposed Procedure: Labor Epidural - Anesthesia/Transfusion/Family Hx Anesthesia History: Prior Anesthesia Reaction Type of Anesthesia Reaction: Other (see below) (High level with epidural, felt she could not breathe, had to be turned off and restarted at a lower rate. ) Family History of Anesthesia Reaction: No Transfusion History: No Prior Transfusion(s) Intubation History: Unknown - Review of Systems General: No Symptoms Pulmonary: No Symptoms Cardiovascular: No Symptoms Gastrointestinal: Other (GERD) Neurological: No Symptoms Other: Reports: Easy Bleeding, Easy Bruising (Anticoagulated with heparin prophylaxis. History of blood clot in sagital sinus lead to seizure at 27. No further blood clot development. ) - Physical Assessment Vital Signs: Last Vital Signs Temp 36.4 C 11/24/19 15:12 Pulse 98 11/24/19 15:12 Resp BP 135/98 H 11/24/19 15:12 Pulse Ox Height: 1.68 m Weight: 101.605 kg ASA Class: 2 Mental Status: Alert & Oriented x3 Airway Class: Mallampati = 1 Dentition: Reports: Mims(s) (Cap to front incisor) Thyro-Mental Finger Breadths: 3 Mouth Opening Finger Breadths: 3 ROM/Head Extension: Full Lungs: Clear to Auscultation, Normal Respiratory Effort Cardiovascular: Regular Rate, Regular Rhythm - Lab Values: Laboratory Last Values WBC 7.77 K/mm3 (3.98-10.04) 11/24/19 15:45 RBC 3.45 M/mm3 (3.98-5.22) L 11/24/19 15:45 Hgb 9.7 gm/dl (11.2-15.7) L 11/24/19 15:45 Hct 30.1 % (34.1-44.9) L 11/24/19 15:45 MCV 87.2 fl (79.4-94.8) D 11/24/19 15:45 MCH 28.1 pg (25.6-32.2) 11/24/19 15:45 MCHC 32.2 g/dl (32.2-35.5) 11/24/19 15:45 RDW Std Deviation 42.2 fL (36.4-46.3) 11/24/19 15:45 Plt Count 154 K/mm3 (182-369) L D 11/24/19 15:45 MPV 11.3 fl (9.4-12.3) 11/24/19 15:45 APTT 21 SECONDS (22-31) L 11/24/19 17:50 BUN 7 mg/dL (7-18) 11/24/19 16:00 Creatinine 0.6 mg/dL (0.55-1.02) 11/24/19 16:00 Est Cr Clr Drug Dosing 126.01 mL/min 11/24/19 16:00 Estimated GFR (MDRD) > 60 mL/min (>60) 11/24/19 16:00 AST 17 U/L (15-37) 11/24/19 16:00 ALT 20 U/L (14-59) 11/24/19 16:00 Lactate Dehydrogenase 209 U/L (81-234) 11/24/19 16:00 Ur Random Creatinine 59.3 mg/dL (30.0-125.0) 11/24/19 17:15 U Random Total Protein 8.0 mg/dL (0.0-11.8) 11/24/19 17:15 Protein/Creatinin Ratio 134.9 mg/g (0-149) 11/24/19 17:15 COVID-19 (JERRY) Negative (NEGATIVE) 11/24/19 15:25 - Allergies Allergies/Adverse Reactions: Allergies Allergy/AdvReac Type Severity Reaction Status Date / Time phenytoin [From Dilantin] Allergy Other Verified 08/05/16 10:10 - Acknowledgements Anesthesia Type Planned: Epidural Pt an Appropriate Candidate for the Planned Anesthesia: Yes Alternatives and Risks of Anesthesia Discussed w Pt/Guardian: Yes Pt/Guardian Understands and Agrees with Anesthesia Plan: Yes PreAnesthesia Questionnaire - Past Health History Medical/Surgical History: Denies Medical/Surgical History HEENT History: Reports: None Cardiovascular History: Reports: Hypertension [employer] ENGINEER History: Reports: Neurological History: Reports: Seizure, Other (See Below) Other Neuro History: DVT CAUSED SEIZURE Endocrine/Metabolic History: Reports: None Hematologic History: Reports: Other (See Below) Other Hematologic History: BLOOD CLOT AT AGE 27 - Past Surgical History HEENT Surgical History: Reports: Oral Surgery - SUBSTANCE USE Smoking Status *Q: Former Smoker Tobacco Use Within Last Twelve Months: Cigarettes Recreational Drug Use History: No - HOME MEDS Home Medications: Home Meds Acetaminophen [Tylenol] 650 mg PO Q4H PRN #0 tablet 08/07/16 [Rx] Aspirin [Jimena Chewable] 81 mg PO BEDTIME 11/24/19 [History] Cetirizine HCl [Zyrtec] 1 tab PO BEDTIME 11/24/19 [History] Escitalopram Oxalate [Lexapro] 10 mg PO BEDTIME 11/24/19 [History] Heparin Sodium,Porcine/PF [Heparin Sod 5,000 Unit/0.5 ml] 10,000 unit SQ DAILY 11/24/19 [History] Pnv No.95/Ferrous Fum/Folic AC [ Vitamin Tablet] 1 tab PO BEDTIME 11/24/19 [History] - CURRENT (IN HOUSE) MEDS Current Meds: Current Medications Diphenhydramine HCl (Benadryl) 25 mg IVPUSH Q6H PRN PRN Reason: pruritis Ephedrine Sulfate (Ephedrine Sulfate) 5 mg IVPUSH ASDIRECTED PRN PRN Reason: Hypotension Fentanyl (Sublimaze) 100 mcg EPIDUR Q3H PRN PRN Reason: Pain Fentanyl/Bupivacaine HCl (Fentanyl/Bupivacaine/Ns 2 Mcg-0.125% 100 Ml) 100 ml EPIDUR ASDIRECTED PRN PRN Reason: Pain Oxytocin/Lactated Ringer's (Pitocin In Lr 10 Units/1,000 Ml) 10 unit in 1,000 mls @ 12 mls/hr IV TITRATE MARIA G; Protocol Last Titration: 11/24/19 18:55 Dose: 12 munits/min, 72 mls/hr Documented by: Oxytocin/Lactated Ringer's (Pitocin In Lr 10 Units/1,000 Ml) 10 unit in 1,000 mls @ 500 mls/hr IV .CONTINUOUS MARIA G Lactated Ringer's (Ringers, Lactated) 1,000 mls @ 100 mls/hr IV ASDIRECTED MARIA G Last Admin: 11/24/19 15:43 Dose: 100 mls/hr Documented by: Lidocaine HCl (Xylocaine 1%) 50 ml INJECT ONETIME PRN PRN Reason: Breakthrough Pain Nalbuphine HCl (Nubain) 10 mg IVPUSH Q2H PRN PRN Reason: Pain Sodium Chloride (Saline Flush) 10 ml FLUSH ASDIRECTED PRN PRN Reason: Keep Vein Open
[2019-11-24] MEDS ORDERED: Acetaminophen 325 MG Tab PO PRN (21:20)
[2019-11-25] MEDS ORDERED: Lidocaine 1.5% with EPINEPHrine 1:200,000 5 ML Amp ONE
[2019-11-25] MEDS ORDERED: Oxytocin/Lactated Ringers 20 UNIT/1,000 ML BAG IV SCH (00:30)
--- NOTE | 2019-11-25 04:54 | PCM.SN.2 ---
- Free Text/Narrative Note: Stage I - 34 year old at 37w6 days admitted with mild gestational hypertension for induction of labor. Pitocin. Epidural for anesthesia. Progressed to complete with reassuring FHT. STage II - of viable male, weight 3330g, 8/9 apgars at 0434. Head delivered in controlled manner over intact perineum. Body and shoulders atraumatically. To maternal abdomen. Positive cry. Cord clamped and cut at one minute of life. Stage III - of intact placetna. 3vc. Small 1st degree laceration repaired with 3-0 vicryl. EBL 100.
[2019-11-25] MEDS ORDERED: Witch Hazel Medicated Pads 40/Jar TOP PRN (05:35)
[2019-11-25] MEDS ORDERED: Benzocaine/Menthol 20%-0.5% Spray 56 GM Canister TOP PRN (05:35)
[2019-11-25] MEDS: Lactated Ringers 1,000 ML IV SCH ×2 (08:45→08:46)
[2019-11-25] MEDS: Heparin Sodium 5,000 Units/ML Vial SUBCUT SCH ×2 (21:15→21:16)
--- NOTE | 2019-11-26 08:13 | PCM.DCSUM1 ---
Discharge Summary - Hospital Course Brief History: Admitted for induction for blood pressures Diagnosis: Stroke: No - Discharge Data Discharge Date: 11/26/19 Discharge Disposition: Home, Self-Care 01 Condition: Good - Referral to Home Health Primary Care Physician: Nimisha Rinaldi MD - Patient Instructions Diet: Usual Diet as Tolerated Activity: No Strenuous Activities Activity, Other: pelvic rest Driving: May Drive Today Showering/Bathing: May Shower Wound/Incision Care: Keep Operative Site/Wound Site Clean and Dry Notify Provider of: Fever, Increased Pain, Swelling and Redness, Drainage, Nausea and/or Vomiting - Discharge Plan *PRESCRIPTION DRUG MONITORING PROGRAM REVIEWED*: No *COPY OF PRESCRIPTION DRUG MONITORING REPORT IN PATIENT BOUBACAR: No Home Medications: Home Meds Aspirin [Jimena Chewable Aspirin] 81 mg PO BEDTIME 11/24/19 [History] Cetirizine HCl [Zyrtec] 1 tab PO BEDTIME 11/24/19 [History] Escitalopram Oxalate [Lexapro] 10 mg PO BEDTIME 11/24/19 [History] Pnv No.95/Ferrous Fum/Folic AC [ Vitamin Tablet] 1 tab PO BEDTIME 11/24/19 [History] Heparin Sodium 5,000 units SUBCUT Q12HR vial 11/26/19 [Rx] Referrals: Nimisha Rinaldi MD [Primary Care Provider] - (2-3 weeks (may be telemed if desires)) - Discharge Summary/Plan Comment DC Time >30 min.: No - General Info Date of Service: 11/26/19 Functional Status: Reports: Pain Controlled - Review of Systems General: Reports: No Symptoms HEENT: Reports: No Symptoms Pulmonary: Reports: No Symptoms Cardiovascular: Reports: No Symptoms Gastrointestinal: Reports: No Symptoms Genitourinary: Reports: No Symptoms Musculoskeletal: Reports: No Symptoms Skin: Reports: No Symptoms Neurological: Reports: No Symptoms Psychiatric: Reports: No Symptoms - Patient Data Vitals - Most Recent: Last Vital Signs Temp 36.3 C 11/26/19 05:14 Pulse 70 11/26/19 05:14 Resp 14 11/26/19 05:14 BP 134/94 H 11/26/19 05:14 Pulse Ox 95 11/26/19 05:14 Weight - Most Recent: 101.605 kg Med Orders - Current: Current Medications Benzocaine/Menthol (Dermoplast Pain Relief Hinkley) 0 gm TOP ASDIRECTED PRN PRN Reason: Perineal Comfort Measure Last Admin: 11/25/19 15:47 Dose: 1 can Documented by: Heparin Sodium (Porcine) (Heparin Sodium) 5,000 units SUBCUT Q12HR MARIA G Last Admin: 11/25/19 21:16 Dose: Not Given Documented by: Harris Joiner ([email or web address]) 1 pad TOP ASDIRECTED PRN PRN Reason: Pain Last Admin: 11/25/19 15:47 Dose: 1 jar Documented by: Discontinued Medications Acetaminophen (Tylenol) 650 mg PO Q4H PRN PRN Reason: Headache/Pain Last Admin: 11/24/19 21:29 Dose: 650 mg Documented by: Diphenhydramine HCl (Benadryl) 25 mg IVPUSH Q6H PRN PRN Reason: pruritis Ephedrine Sulfate (Ephedrine Sulfate) 5 mg IVPUSH ASDIRECTED PRN PRN Reason: Hypotension Fentanyl (Sublimaze) 100 mcg EPIDUR Q3H PRN PRN Reason: Pain Fentanyl/Bupivacaine HCl (Fentanyl/Bupivacaine/Ns 2 Mcg-0.125% 100 Ml) 100 ml EPIDUR ASDIRECTED PRN PRN Reason: Pain Last Admin: 11/25/19 03:40 Dose: 100 ml Documented by: Oxytocin/Lactated Ringer's (Pitocin In Lr 10 Units/1,000 Ml) 10 unit in 1,000 mls @ 12 mls/hr IV TITRATE MARIA G; Protocol Last Titration: 11/24/19 20:31 Dose: 16 munits/min, 96 mls/hr Documented by: Oxytocin/Lactated Ringer's (Pitocin In Lr 10 Units/1,000 Ml) 10 unit in 1,000 mls @ 500 mls/hr IV .CONTINUOUS MARIA G Lactated Ringer's (Ringers, Lactated) 1,000 mls @ 100 mls/hr IV ASDIRECTED MARIA G Last Admin: 11/25/19 08:46 Dose: 100 mls/hr Documented by: Oxytocin/Lactated Ringer's (Pitocin In Lr 20 Units/1,000 Ml) 20 unit in 1,000 mls @ 60 mls/hr IV TITRATE MARIA G; Protocol Last Admin: 11/25/19 00:29 Dose: 60 mls/hr Documented by: Lidocaine HCl (Xylocaine 1%) 50 ml INJECT ONETIME PRN PRN Reason: Breakthrough Pain Lidocaine/Epinephrine (Xylocaine-Mpf 1.5% W/Epinephrine 1:200,000) 5 ml .ROUTE .[facility]-MED ONE Stop: 11/25/19 00:01 Nalbuphine HCl (Nubain) 10 mg IVPUSH Q2H PRN PRN Reason: Pain Last Admin: 11/25/19 03:05 Dose: 10 mg Documented by: Sodium Chloride (Saline Flush) 10 ml FLUSH ASDIRECTED PRN PRN Reason: Keep Vein Open - Exam General: Reports: Alert, Oriented HEENT: Reports: Pupils Equal, Pupils Reactive, EOMI, Mucous Membr. Moist/[place] Neck: Reports: Supple Lungs: Reports: Clear to Auscultation, Normal Respiratory Effort Cardiovascular: Reports: Regular Rate, Regular Rhythm GI/Abdominal Exam: Normal Bowel Sounds, Soft, Non-Tender, No Organomegaly, No Distention, No Abnormal Bruit, No Mass, Pelvis Stable Rectal (Female) Exam: Normal Exam, Normal Rectal Tone Back Exam: Reports: Normal Inspection, Full Range of Motion Extremities: Normal Inspection, Normal Range of Motion, Non-Tender, No Pedal Edema, Normal Capillary Refill Skin: Reports: Warm, Dry, Intact Wound/Incisions: Reports: Healing Well Neurological: Reports: No New Focal Deficit Psy/Mental Status: Reports: Alert, Normal Affect, Normal Mood
[2019-11-26] MEDS: Heparin Sodium 5,000 Units/ML Vial SUBCUT SCH (09:30)
[2019-11-26 10:21] VITALS: BP 126/95; PULSE 80
--- NOTE | 2019-11-26 12:05 | PCM48HPAN ---
Post Anesthesia Note - EVALUATION WITHIN 48HRS OF ANESTHETIC Vital Signs in Normal Range: Yes Patient Participated in Evaluation: Yes Respiratory Function Stable: Yes Airway Patent: Yes Cardiovascular Function Stable: Yes Hydration Status Stable: Yes Pain Control Satisfactory: Yes Nausea and Vomiting Control Satisfactory: Yes Mental Status Recovered: Yes Vital Signs: Last Vital Signs Temp 97.7 F 11/26/19 09:09 Pulse 80 11/26/19 09:09 Resp 18 11/26/19 09:09 BP 126/95 H 11/26/19 09:09 Pulse Ox 98 11/26/19 09:09 - COMMENTS/OBSERVATIONS Free Text/Narrative:: Patient is on her day 1. Stated understanding about possible backaches following epidural anesthesia. Mentions having no back soreness at this time. Explanation given about importance of avoiding back straining. Denies any headache or lightheadedness at this time. Comfortable now. Ambulating, no difficulty urinating.
== END 2019-11-26 13:00 | disposition home or self-care (01) | DRG 560 ==
LOC: JD.OBCHECK 14:17 → JD.OB 14:18 → JD.OBCHECK 15:12 → OBSVTOIN 11-25 04:34 → JD.OB 11-25 04:35
PROVIDERS: ADMIT Obstetrics & Gynecology; ATTEND Obstetrics & Gynecology
PROC: 10E0XZZ Delivery of Products of Conception, External Approach (ICD-10-PCS; principal; 2019-11-25)
PROC: 0HQ9XZZ Repair Perineum Skin, External Approach (ICD-10-PCS; 2019-11-25)
PROC: 3E0R3BZ Introduction of Anesthetic Agent into Spinal Canal, Percutaneous Approach (ICD-10-PCS; 2019-11-25)
PROC: 3E033VJ Introduction of Other Hormone into Peripheral Vein, Percutaneous Approach (ICD-10-PCS; 2019-11-25)
DX: O13.4 Gestational [pregnancy-induced] hypertension without significant proteinuria, complicating childbirth (principal); Z3A.37 37 weeks gestation of pregnancy; Z37.0 Single live birth; Z88.8 Allergy status to other drugs, medicaments and biological substances; Z87.891 Personal history of nicotine dependence; Z79.82 Long term (current) use of aspirin; Z20.828 Contact with and (suspected) exposure to other viral communicable diseases
CPT/HCPCS: 36415; 59025; 59409; 82565; 82570; 83615; 84156; 84450; 84460; 84520; 85027; 85730; 86592; A9270-GY; J1644; J2300; J2590; J7120; U0002